=== PATIENT | male | born 1990 | race Caucasian/White ===

== ENCOUNTER 2021-04-13 11:16 | Emergency (ER) | payer MEDICAID, SELFPAY ==
[2021-04-13 11:40] VITALS: BP 142/80; PULSE 75; RESP 18; TEMP 36.4; O2SAT 99
--- NOTE | 2021-04-13 12:23 | ED.GENADULT ---
HPI - General Adult General Chief complaint: Unspecified Stated complaint: Would like a blood test for tetanus Time Seen by Provider: 04/13/21 12:11 Source: RN notes reviewed History of Present Illness HPI narrative: Patient presents emerged part from home for concerns of tetanus. Patient states he cut himself with a ronen piece of metal approximately 2 weeks ago on his left forearm. States that area is healed but his last tetanus shot was in 2005 he states that he is noticed over the past week he has had intermittent cramping throughout his body he denies any current cramping and denies any lockjaw denies any fevers or chills chest pain shortness of breath or any other symptoms Related Data Home Medications Medication Instructions Recorded Confirmed No Home Medications 04/13/21 04/13/21 Allergies Allergy/AdvReac Type Severity Reaction Status Date / Time No Known Allergies Allergy Mild Verified 04/13/21 11:43 Review of Systems Review of Systems: Narrative: Gen.: Denies fevers or chills ENT: Denies congestion Respiratory: Denies shortness of breath or cough CV: Denies chest pain or palpitations GI: Denies abdominal pain nausea, emesis or diarrhea Musculoskeletal: Denies back pain reports muscle cramping Neuro: Denies numbness, tingling, weakness or focal weakness Skin: Denies rash Except as documented, all other systems reviewed and negative PMFSH Past Medical History Medical History (Updated 04/13/21 @ 12:58 by Jose Eduardo Nicole DO) Patient denies significant medical history Social History Social History (Updated 04/13/21 @ 12:24 by Jose Eduardo Nicole DO) Smoking status: Never smoker Exam Narrative: Exam Narrative: APPEARANCE: No acute distress, nontoxic, resting in bed EYES: EOMI HEENT: Normocephalic, atraumatic, OMM full range of motion of the jaw without pain RESPIRATORY: No respiratory distress Clear to auscultation bilaterally with no rhonchi wheezing or rales. CARDIOVASCULAR: Regular rate and rhythm without murmurs rubs or gallops. ABDOMINAL: Soft, nontender, nondistended, no rebound or guarding MUSCULOSKELETAl: Moves all extremities. No clubbing, cyanosis or edema. No calf tenderness NEURO: Awake and alert. Following commands, speech normal, no focal deficits SKIN:: Warm, dry. No rashes lesions healing abrasion over the left dorsal wrist with no surrounding erythema or signs of infection PSYCHIATRIC: Normal affect/mood, Course Course Emergency Course: Discussed with patient results of workup and diagnosis. Discussed need for follow-up with primary care, proper use of medication, and reasons to return to the emergency department. Patient understands and agrees to current treatment plan Vital Signs Vital signs: Vital Signs Temperature 97.6 F 04/13/21 11:40 Pulse Rate 75 04/13/21 11:40 Respiratory Rate 18 04/13/21 11:40 Blood Pressure 142/80 H 04/13/21 11:40 Pulse Oximetry 99 04/13/21 11:40 Temperature 97.6 F 04/13/21 11:40 Pulse Rate 75 04/13/21 11:40 Respiratory Rate 18 04/13/21 11:40 Blood Pressure 142/80 H 04/13/21 11:40 Pulse Oximetry 99 04/13/21 11:40 Medical Decision Making MDM Narrative Medical decision making narrative: Patient presents for concerns of tetanus patient notes intermittent cramping and the patient has no current cramping there is no lockjaw for range of motion of the jaw lab work is within normal limits patient was updated on his booster shot and feel that he may be discharged follow-up as Vital Signs Vital Signs: Vital Signs Temperature 97.6 F 04/13/21 11:40 Pulse Rate 75 04/13/21 11:40 Respiratory Rate 18 04/13/21 11:40 Blood Pressure 142/80 H 04/13/21 11:40 Pulse Oximetry 99 04/13/21 11:40 Temperature 97.6 F 04/13/21 11:40 Pulse Rate 75 04/13/21 11:40 Respiratory Rate 18 04/13/21 11:40 Blood Pressure 142/80 H 04/13/21 11:40 Pulse Oximetry 99 04/13/21 11:40 Lab Data Result diagrams: 0
[2021-04-13 12:35] LABS: Basophils Absolute Auto 0.1 K/mm3 (0.0-0.1); Basophils Percent Auto 0.9 % (0.2-1.2); Eosinophils Absolute Auto 0.1 K/mm3 (0-0.3); Eosinophils Percent Auto 1.7 % (0-4.4); Hematocrit 48.2 % (42.0-52.0); Hemoglobin 16.4 g/dL (14.0-18.0); Immature Granulocyte Absolute 0.01 K/mm3 (0.00-0.031); Immature Granulocyte Percent A 0.2 % (0-0.5); Lymphocytes Absolute Auto 1.28 K/mm3 (0.9-3.2); Lymphocytes Percent Auto 22.1 % (18.3-44.2); Mean Corpuscular Hemoglobin 29.8 pg (26-34); Mean Corpuscular Volume 87.5 fl (80-100); Monocytes Absolute Auto 0.4 K/mm3 (0.1-0.6); Monocytes Percent Auto 6.4 % (2.6-8.5); Neutrophils Percent Auto 68.7 % (45.5-73.1); Platelet Count Result 230 k/mm3 (150-375); Red Blood Count 5.51 M/mm3 (4.6-6.20); Red Cell Distribution Width 12.3 % (11.5-14.5); White Blood Count 5.8 K/mm3 (4.5-10.0)
[2021-04-13] MEDS: TETANUS,DIPHTHERIA,AC PERTUSSIS ADULT (0.5 ML) BOOSTRIX IM (12:37)
[2021-04-13 12:46] LABS: Alanine Aminotransferase 18 U/L (4-50); Albumin Level 5.1 g/dL (3.5-5.1); Alkaline Phosphatase 75 U/L (38-126); Anion Gap 11 mmol/L (8-16); Aspartate Amino Transferase 25 U/L (17-59); Bilirubin,Total 1.1 mg/dL (0.2-1.3); Blood Urea Nitrogen 12 mg/dL (9-20); Calcium 10.1 mg/dL (8.4-10.2); Carbon Dioxide 29 mmol/L (22-30); Chloride 101 mmol/L (98-107); Estimated CRCL calculation 114 ml/min; Estimated Glomerular Filt Rate > 60; Glucose 109 mg/dL (65-110); Potassium 4.6 mmol/L (3.4-5.0); Sodium 141 mmol/L (137-145)
[2021-04-13 13:03] VITALS: BP 132/82; PULSE 67; RESP 16; O2SAT 100
== END 2021-04-13 13:04 | disposition home or self-care (01) ==
PROVIDERS: Emergency Provider Emergency Medicine
DX: R25.2 Cramp and spasm (principal); Z23 Encounter for immunization
CPT/HCPCS: 36415; 80053; 83735; 85025; 90471; 90715; 99283